=== PATIENT | female | born 1990 | race Caucasian/White ===

== ENCOUNTER 2017-09-16 23:13 | Emergency (ER) | payer OTHER ==
[~2017-09-16] VITALS: Ht 152.4 cm; Wt 72.6 kg
--- NOTE | 2017-09-16 23:53 | PHYS DOC ---
Past Medical History Smokin Pack Per Day Alcohol Use: Occasionally Drug Use: None Adult General Chief Complaint Chief Complaint: CHEST PAIN HPI HPI Patient is a 27 year old female presents to the emergency department with complaints of left chest pain for one day. Patient states that yesterday she developed left anterior chest pain that causes pain in the left shoulder area and tingling in the left upper extremity. She states she's had mild nausea without vomiting. She states she's had no lightheadedness or dizziness. She reports that she has had no shortness of breath, no palpitations. Patient reports that she traveled to [facility] on and returned 3 days later. She states that the car trip ball several stops along the way. Review of Systems Review of Systems Constitutional: Denies fever or chills [] Eyes: Denies change in visual acuity, redness, or eye pain [] HENT: Denies nasal congestion or sore throat [] Respiratory: Denies cough or shortness of breath [] Cardiovascular: Left anterior chest with radiation left shoulder and left upper extremity GI: Denies abdominal pain, nausea, vomiting, bloody stools or diarrhea [] : Denies dysuria or hematuria [] Musculoskeletal: Denies back pain or joint pain [] Integument: Denies rash or skin lesions [] Neurologic: Denies headache, focal weakness or sensory changes [] Endocrine: Denies polyuria or polydipsia [] All other systems were reviewed and found to be within normal limits, except as documented in this note. Current Medications Current Medications Current Medications Medications (Trade) Dose Ordered Sig/Jayne Start Time Stop Time Status Last Admin Dose Admin Fentanyl Citrate (Fentanyl 2ml Vial) 50 mcg 1X ONCE 09/17/17 00:45 09/17/17 00:46 DC 09/17/17 00:47 50 MCG Info (Do NOT chart on this entry -- for MONITORING) 1 each PRN DAILY PRN 09/17/17 01:15 09/19/17 01:14 Iohexol (Omnipaque 300 Mg/ml) 75 ml 1X ONCE 09/17/17 01:15 09/17/17 01:16 DC Ondansetron HCl (Zofran) 4 mg 1X ONCE 09/17/17 00:45 09/17/17 00:46 DC 09/17/17 00:47 4 MG Allergies Allergies Allergies Coded Allergies Type Severity Reaction Last Updated Verified No Known Drug Allergies 09/17/17 No Physical Exam Physical Exam Constitutional: Well developed, well nourished, no acute distress, non-toxic appearance. [] HENT: Normocephalic, atraumatic, bilateral external ears normal, oropharynx moist, no oral exudates, nose normal. [] Eyes: PERRLA, EOMI, conjunctiva normal, no discharge. [] Neck: Normal range of motion, no tenderness, supple, no stridor. [] Cardiovascular:Heart rate regular rhythm, no murmur [] Lungs & Thorax: Sounds diminished throughout. Symmetric chest wall movement with inspection expiration. Tenderness to palpate over the left trapezius. Abdomen: Bowel sounds normal, soft, no tenderness, no masses, no pulsatile masses. [] Skin: Warm, dry, no erythema, no rash. [] Back: No tenderness, no CVA tenderness. [] Extremities: No tenderness, no cyanosis, no clubbing, ROM intact, no edema. Calves are supple, and negative Homans sign.[] Neurologic: Alert and oriented X 3, normal motor function, normal sensory function, no focal deficits noted. [] Psychologic: Affect normal, judgement normal, mood normal. [] Current Patient Data Vital Signs Vital Signs Date Time Temp Pulse Resp B/P (MAP) Pulse Ox O2 Delivery O2 Flow Rate FiO2 09/17/17 00:47 12 98 Room Air Lab Values Laboratory Tests Test 09/16/17 23:44 09/16/17 23:55 09/17/17 00:10 Urine Collection Type Unknown Urine Color Yellow Urine Clarity Clear Urine pH 6.0 Urine Specific Wirt <=1.005 Urine Protein Negative mg/dL (NEG-TRACE) Urine Glucose (UA) Negative mg/dL (NEG) Urine Ketones (Stick) Negative mg/dL (NEG) Urine Blood Small (NEG) Urine Nitrite Negative (NEG) Urine Bilirubin Negative (NEG) Urine Urobilinogen Dipstick 0.2 mg/dL (0.2 mg/dL) Urine Leukocyte Esterase Negative (NEG) Urine RBC Occ /HPF (0-2) Urine WBC 1-4 /HPF (0-4) Urine Squamous Epithelial Cells Mod /LPF Urine Bacteria 0 /HPF (0-FEW) Urine Mucus Slight /LPF POC Urine HCG, Qualitative Hcg negative (Negative) White Blood Count 10.5 x10^3/uL (4.0-11.0) Red Blood Count 4.82 x10^6/uL (3.50-5.40) Hemoglobin 14.6 g/dL (12.0-15.5) Hematocrit 43.6 % (36.0-47.0) Mean Corpuscular Volume 90 fL (79-100) Mean Corpuscular Hemoglobin 30 pg (25-35) Mean Corpuscular Hemoglobin Concent 33 g/dL (31-37) Red Cell Distribution Width 13.2 % (11.5-14.5) Platelet Count 261 x10^3/uL (140-400) Neutrophils (%) (Auto) 63 % (31-73) Lymphocytes (%) (Auto) 28 % (24-48) Monocytes (%) (Auto) 7 % (0-9) Eosinophils (%) (Auto) 1 % (0-3) Basophils (%) (Auto) 0 % (0-3) Neutrophils # (Auto) 6.6 x10^3uL (1.8-7.7) Lymphocytes # (Auto) 2.9 x10^3/uL (1.0-4.8) Monocytes # (Auto) 0.8 x10^3/uL (0.0-1.1) Eosinophils # (Auto) 0.1 x10^3/uL (0.0-0.7) Basophils # (Auto) 0.0 x10^3/uL (0.0-0.2) D-Dimer (Jane) < 0.27 ug/mlFEU Sodium Level 138 mmol/L (136-145) Potassium Level 3.5 mmol/L (3.5-5.1) Chloride Level 104 mmol/L (98-107) Carbon Dioxide Level 25 mmol/L (21-32) Anion Gap 9 (6-14) Blood Urea Nitrogen 17 mg/dL (7-20) Creatinine 0.7 mg/dL (0.6-1.0) Estimated GFR (Cockcroft-Gault) 100.4 BUN/Creatinine Ratio 24 (6-20) H Glucose Level 103 mg/dL (70-99) H Calcium Level 9.2 mg/dL (8.5-10.1) Total Bilirubin 0.5 mg/dL (0.2-1.0) Aspartate Amino Transferase (AST) 22 U/L (15-37) Alanine Aminotransferase (ALT) 34 U/L (14-59) Alkaline Phosphatase 66 U/L (46-116) Creatine Kinase 127 U/L (26-192) Creatine Kinase MB (Mass) 0.6 ng/mL (0.0-3.6) Creatine Kinase MB Relative Index 0.5 % (0-4) Troponin I Quantitative < 0.017 ng/mL (0.000-0.055) Total Protein 8.2 g/dL (6.4-8.2) Albumin 4.4 g/dL (3.4-5.0) Albumin/Globulin Ratio 1.2 (1.0-1.7) Laboratory Tests 09/17/17 00:10 Laboratory Tests 09/17/17 00:10 EKG EKG 2224: EKG reviewed by Dr. Jaison Lopez, non-STEMI. Rhythm is sinus rhythm, WI interval 0.16, QRS 0.88[] Radiology/Procedures Radiology/Procedures [] Course & Med Decision Making Course & Med Decision Making Pertinent Labs and Imaging studies reviewed. (See chart for details) 0136: Transfer to Dr. Lea. CT chest pending. Patient without complaints at this time. [] Dragon Disclaimer Dragon Disclaimer This electronic medical record was generated, in whole or in part, using a voice recognition dictation system. Departure Departure Impression: Primary Impression: Nonspecific chest pain YAZAN AGUILLON APRN Sep 16, 2017 23:53
[2017-09-17 00:03] LABS: BILIRUBIN,URINE NEGATIVE (NEG); GLUCOSE,URINE NEGATIVE (NEG); NITRITE,URINE NEGATIVE (NEG); PROTEIN,URINE NEGATIVE (NEG-TRACE); UROBILINOGEN,URINE 0.2 mg/dL (0.2 mg/dL)
[2017-09-17 00:32] LABS: BASO % 0 % (0-3); EOS % 1 % (0-3); HEMATOCRIT 43.6 % (36.0-47.0); HEMOGLOBIN 14.6 g/dL (12.0-15.5); LYMPH # 2.9 x10^3/uL (1.0-4.8); LYMPH % 28 % (24-48); MEAN CORPUSCULAR HEMOGLOBIN 30 pg (25-35); MEAN CORPUSCULAR HGB CONC 33 g/dL (31-37); MEAN CORPUSCULAR VOLUME 90 fL (79-100); MONO % 7 % (0-9); NEUT % 63 % (31-73); PLATELET COUNT 261 x10^3/uL (140-400); RED BLOOD COUNT 4.82 x10^6/uL (3.50-5.40); RED CELL DISTRIBUTION WIDTH 13.2 % (11.5-14.5); WHITE BLOOD COUNT 10.5 x10^3/uL (4.0-11.0)
[2017-09-17 00:40] LABS: BACTERIA,URINE 0 /HPF (0-FEW); RBC,URINE OCC /HPF (0-2); SQUAMOUS EPITHELIAL CELL,UR MOD /LPF
[2017-09-17] MEDS ORDERED: ONDANSETRON PF 4 MG/2 ML VIAL. IV ONE (00:45)
[2017-09-17] MEDS ORDERED: fentaNYL PF VIAL 100 MCG/2 ML VIAL IV ONE ×2 (00:45→02:45)
[2017-09-17 00:53] LABS: CALCIUM 9.2 mg/dL (8.5-10.1); CREATININE 0.7 mg/dL (0.6-1.0); GFR 100.4; POTASSIUM 3.5 mmol/L (3.5-5.1)
[2017-09-17 00:57] LABS: ALBUMIN 4.4 g/dL (3.4-5.0); ALBUMIN/GLOBULIN RATIO 1.2 (1.0-1.7); CKMB MASS 0.6 ng/mL (0.0-3.6); TOTAL BILIRUBIN 0.5 mg/dL (0.2-1.0); TOTAL PROTEIN 8.2 g/dL (6.4-8.2)
[2017-09-17] MEDS ORDERED: IOHEXOL 300 MG/ML 100ML VIAL. IV ONE (01:15)
[2017-09-17] MEDS ORDERED: CONTRAST GIVEN MC PRN (01:15)
--- NOTE | 2017-09-17 02:44 | RAD ---
INDICATION: chest pain, soa; Omni 300, 75ml COMPARISON: None. TECHNIQUE: Axial CT images obtained through the chest. Intravenous contrast utilized. Angiogram 3D images processed per protocol. One or more of the following individualized dose reduction techniques were utilized for this examination: 1. Automated exposure control; 2. Adjustment of the mA and/or kV according to patient size; 3. Use of iterative reconstruction technique. FINDINGS: No evidence of pneumothorax. Mild scattered cystic changes. Mild nodular opacity within the right middle lobe, given location this could be atelectasis. Partial visualization a kidneys with high density material in partially visualized renal pelvis. Could be excreted contrast or partially seen renal stone. Portions of proximal aorta are obscured by motion but no aneurysm is seen in visualized portions of thoracic aorta. Region of sclerosis in one of the left lower ribs. Could be from causes such as old fracture. Borderline size lymph node in right hilar region. No central pulmonary embolus but patient motion makes peripheral evaluation is limited IMPRESSION: 1. No central pulmonary embolus but limited peripherally secondary to motion. 2. There are some cystic changes seen to the bilateral lungs. 3. 4 mm nodule right upper lung. Fleischner Society recommendations for solitary solid lung nodule follow up.: In a low risk patient: <6mm - No follow up required. 6-8mm - 6-[address], then CT at 18-24 months. >8mm - CT at 3 months, PET/CT or tissue sampling. In a high risk patient (history of smoking or other known risk factors): <6mm - Follow up CT at 12 months. 6-8mm - 6-[address], then CT at 18-24 months. >8mm - CT at 3 months, PET/CT or tissue sampling. Fleischner Society recommendations for multiple solid lung nodule follow up.: In a low risk patient: <6mm - No follow up required. 6-8mm - 3-[address], then CT at 18-24 months. >8mm - CT at 3-6 months, then at 18-24 months. PET/CT or tissue sampling based on most suspicious nodule. In a high risk patient (history of smoking or other known risk factors): <6mm - Follow up CT at 12 months. 6-8mm - 3-[address], then CT at 18-24 months. >8mm - CT at 3-6 months, PET/CT or tissue sampling option based on most suspicious nodule. Electronically signed by: Bartolo Ovalles MD (09/17/2017 2:41 AM) [facility] [id number]
[2017-09-17 02:46] VITALS: BP 111/66
[2017-09-17] MEDS ORDERED: fentaNYL PF VIAL 100 MCG/2 ML VIAL IM ONE (03:00)
--- NOTE | 2017-09-17 08:23 | EKG ---
[facility] [address] [place] [address] Test Date: 2017-09-16 Test Time: 23:23:51 Pat Name: KAYCEE MARTINS Department: Room: Gender: F [employer] Software Engineer: : [id number] Requested By: YORDY BARBOUR Order Number: [id number] Reading MD: Dean Bravo Measurements Intervals [place] Rate: 81 P: 0 CA: 166 QRS: 44 QRSD: 86 T: 19 QT: 352 QTc: 409 Interpretive Statements SINUS RHYTHM Electronically Signed On 09-21-2017 16:54:52 [facility] TECHNICIAN by Dean Bravo
== END 2017-09-17 03:14 | disposition home or self-care (01) ==
LOC: ER 23:13
DX: R07.9 Chest pain, unspecified (principal); R20.2 Paresthesia of skin; R11.0 Nausea; F17.200 Nicotine dependence, unspecified, uncomplicated
CPT/HCPCS: 36415; 71275; 80053; 81001; 81025; 82553; 84484; 85025; 85379; 93005; 96374; 96375; 96376; 99285; J2405; J3010